=== PATIENT | male | born 1930 | race African-American/Black ===

== ENCOUNTER 2017-04-03 07:06 | Observation (INO) ==
[2017-04-03] MEDS ORDERED: Heparin 1,000 UNITS/500 mL NS 500 ML ONE ×2 (07:19→10:22)
[2017-04-03] MEDS ORDERED: 0.9 % Sodium Chloride 500 ML ONE ×2 (07:20→08:42)
[2017-04-03] MEDS ORDERED: *HR* FentaNYL (PF) 100 MCG/2 ML VIAL IVP ONE (07:47)
[2017-04-03] MEDS ORDERED: *HR* Midazolam HCl 2 MG/2 ML VIAL IVP ONE (07:47)
[2017-04-03] MEDS ORDERED: Ampicillin/Sulbactam 1,500 MG in 0.9 % Sodium Chloride Mini Bag 100 ML IVPB ONE (07:49)
[2017-04-03] MEDS ORDERED: 0.9 % Sodium Chloride 1,000 ML ONE (09:28)
--- NOTE | 2017-04-03 11:32 | Pre-Sedation Evaluation ---
Pre-sedation evaluation - Pre-sedation checklist Date of procedure: 04/03/17 Procedure: liver embolization Recent Vitals: Last Vital Signs Temp 98.5 F 04/03/17 07:43 Pulse 88 04/03/17 11:19 Resp 16 04/03/17 11:19 BP 164/85 04/03/17 11:19 Pulse Ox 100 04/03/17 11:19 H&P (including ROS) documented in medical record: Yes Previous reaction to sedatives/anesthetics: Yes; explain in comment Dietary Status: NPO after Midnight Airway Assessment: Patient can open mouth completely, TMJ function normal, Micrognathia (under-bite, receding chin) absent, Neck with adequate range of motion Dentition: No loose teeth or bridges Possible difficult airway: No ASA Classification *see protocol: CLASS III-Severe systemic disease Plan of Care: Pt appropriate candidate for procedure/moderate/conscious sedation , Risks/benefits of procedure/sedation discussed w/ patient/family, If not NPO; Risk of intake outweiged by necessity to perform procedure
--- NOTE | 2017-04-03 11:33 | History & Physical Report ---
Date of Encounter: 04/03/17 Time of Encounter: 08:00 24 Hour HP Update - Instructions Instructions: If the History and Physical is less than 30 days old and was completed prior to A.M. admission and or procedure and has NOT been updated on calendar day of procedure please complete this update prior to performing procedure. - Update Patient reports changes in Medical Condition: No Changes in examination, assessment, or condition: No Changes in Medication: No Preop tests/diagnostics Reviewed: Yes Surgery Remains Indicated: Yes Consent for Planned Operative Procedure(s) Verified: Yes - Pre-Operative Checklist Preoperative Checklist Indicated: Yes Prophylactic Antibiotic Ordered: Yes Home Medications Include Beta Herminio: No Is VTE Prophylaxis Indicated?: NO
--- NOTE | 2017-04-03 11:35 | IR Procedure Note ---
Date of procedure: 04/03/17 Consent Obtained: Written consent Timeout: Correct patient and procedure verified, Correct site verified, Time out performed, Skin prep completed Local anesthetic: Lidocaine 1% Indications: Lung cancer, hepatocellular carcinoma. Presents for Embolization of liver Procedure Performed: Partial right hepatic lobe embolization. Site/Technique: Segmental areas of liver embolized in areas of current tumor Results/Findings: Persistent flow to left lobe and majority of right lobe Estimated blood loss (cc): 4 Complications: None; Tolerated procedure well Post Procedure Treatment Plan: Monitoring overnight for pain managment/ bleeding. Plan d/c for tomorrow
[2017-04-03] MEDS ORDERED: Ondansetron 4 MG/2 ML VIAL IVP PRN (15:40)
[2017-04-03] MEDS ORDERED: Acetaminophen 325 MG TABLET PO PRN (15:40)
[2017-04-03] MEDS ORDERED: *HR* HYDROcodone/Acet 5/325 mg TABLET PO PRN (15:40)
[2017-04-03] MEDS ORDERED: *HR* Morphine 2 MG/ML SYRINGE IVP PRN (15:40)
[2017-04-03] MEDS ORDERED: Naloxone 0.4 MG/ML INJ IVP PRN (15:40)
[2017-04-03] MEDS ORDERED: *HR* Dextrose 50 % in Water (Syg) 50 ML SYRINGE IVP PRN (15:42)
[2017-04-03] MEDS ORDERED: D5% in Water 1,000 ML IVC PRN (15:42)
[2017-04-03] MEDS ORDERED: Dextrose Gel 15 GM PO PRN ×2 (15:42)
--- NOTE | 2017-04-03 15:44 | Internal Med History&Physical ---
Date of Encounter: 04/03/17 Time of Encounter: 15:44 Assessment and Plan (1) Hepatocellular carcinoma Current visit: No Status: Chronic Patient underwent partial right hepatic lobe embolization-related well we will continue to monitor for any signs and symptoms of bleeding-continue with current pain management morphine as needed Patient is to be discharged home in the a.m. (2) Diabetes mellitus Current visit: Yes Status: Acute We will hold oral medications for now Accu-Cheks before meals at bedtime with sliding scale insulin-resume oral medications upon discharge Diabetic diet Qualifiers: Diabetes mellitus type: type 2 Diabetes mellitus complication status: without complication Diabetes mellitus detention insulin use: without long term care administrator use Qualified Code(s): E11.9 - Type 2 diabetes mellitus without complications (3) Hypertension Current visit: Yes Status: Acute Presently controlled we will continue with home medications Qualifiers: Hypertension type: essential hypertension Qualified Code(s): I10 - Essential (primary) hypertension (4) DVT prophylaxis Current visit: Yes Status: Acute SCD (5) Non-small cell cancer of right lung Current visit: No Status: Chronic Patient is being followed by Dr. Caraballo at [facility]. Continue outpatient follow-up Internal Medicine - H&P: HPI Chief complaint: Partial right hepatic lobe embolization. Admitted From: Intrahospital Transfer Plans for Post Hospital Care: Home History of present illness: Mr. Garcia is a 86 year old male past medical history of diabetes hypertension hyperlipidemia with hepatic carcinoma. Patient is followed by Dr. Caraballo at [facility] CT of chest abdomen and pelvis 07/06/2016 did reveal increase in liver masses. He presented today to undergo hepatic lobe embolization per interventional radiology. He tolerated procedure well and was admitted for monitoring overnight for pain management/bleeding. He is to be discharged tomorrow. Presently the patient denies any pain or discomfort. Presently he is hemodynamically stable there is no active bleeding and denies any pain or discomfort at this time. I did review his case with Dr. Soto who agrees. Past Med Surg Social Fam HX - Past Medical History Medical history: diabetes, hyperlipidemia, hypertension - Social History Smoking Status: Former smoker Smokeless Tobacco Status: No Alcohol use: none Drug use: none - Family History Mother Living Status: Age at : 80 Cause of : diabetes Father Living Status: Internal Medicine - H&P: Meds Donepezil [Aricept] 5 mg PO HS 12/29/14 [History] Magnesium Oxide [Mag-Ox] 400 mg PO DAILY 12/29/14 [History] Memantine [Namenda] 10 mg PO BID 12/29/14 [History] Metformin HCl [Fortamet] 1,000 mg PO BID 12/29/14 [History] Omeprazole [PriLOSEC] 40 mg PO DAILY 12/29/14 [History] Pioglitazone [Actos] 30 mg PO 0800 12/29/14 [History] Naproxen [EC-Naprosyn] 500 mg PO BID PRN #60 tablet. 05/24/15 [Rx] glipiZIDE [Glucotrol] 10 mg PO BIDWM 06/28/15 [History] 3 Allergy/AdvReac Type Severity Reaction Status Date / Time No Known Allergies Allergy Verified 03/20/17 11:49 All Systems PM: A 10-system review of systems was performed and is negative for pertinent findings except as documented above in the HPI. - Constitutional Vitals: Temp Pulse Resp BP Pulse Ox 97.5 F L 82 18 158/76 97 04/03/17 12:00 04/03/17 13:30 04/03/17 13:30 04/03/17 13:30 04/03/17 13:30 General appearance: Present: A&O X 3, answers questions appropriately - Head Head exam: Present: atraumatic, normocephalic - Eye Eye exam: Present: PERRL, conjuntiva pink, sclera anicteric Pupils: Present: PERRL - Neck Neck exam general surgery: Present: supple, trachea midline. Absent: lymphadenopathy - Respiratory Respiratory exam: Present: CTAB. Absent: accessory muscle use, rales, rhonchi, wheezes - Cardiovascular Cardiovascular exam: Present: RRR, +S1, +S2. Absent: diastolic murmur, gallop, rubs, systolic murmur - GI/Abdominal GI/Abdominal exam: Present: normal bowel sounds, soft, no peritoneal signs. Absent: distended, tenderness - Extremities Exam Extremities exam: Present: warm, radial pulses palpable and symmetrical. Absent : calf tenderness, cyanotic, pedal edema - Neurological Exam Neurological exam: Present: CN II-XII intact, oriented X3, no focal deficits. Absent: pronater drift, facial droop, speech deficit - Skin Skin exam: Present: dry, intact
[2017-04-03] MEDS: Insulin LISPRO 300 UNITS/3 ML VIAL SQ SCH (17:13)
[2017-04-03] MEDS ORDERED: Insulin LISPRO 300 UNITS/3 ML VIAL SQ SCH (21:00)
[2017-04-03] MEDS ORDERED: *HR* LORazepam 2 MG/ML VIAL IVP ONE (21:55)
[2017-04-03] MEDS ORDERED: Water for inj. (sterile) 10 ML IV ONE (22:01)
[2017-04-04 05:37] LABS: Basophils % 0.3 %; Eosinophils % 0.3 %; Hematocrit 37.1 % (37.5-50.1); Hemoglobin 11.8 g/dL (12.9-16.9); Immature Granulocytes % 0.4 % (0-4); Lymphocytes % 8.4 %; Mean Corpuscular HGB Conc 31.8 g/dL (31.6-35.5); Mean Corpuscular Volume 87.9 fL (83.0-100.0); Mean Platelet Volume 10.7 fL (9.4-12.4); Monocytes # 1.6 K/mcL (0.0-1.3); Monocytes % 13.1 %; Neutrophils # 9.5 K/mcL (1.6-8.9); Platelet Count 254 K/mcL (140-400); Red Blood Count 4.22 M/mcL (4.19-5.50); Red Cell Distribution Width 13.4 % (11.5-14.5); Segmented Neutrophils % 77.5 %
[2017-04-04 05:51] LABS: BUN/Creatinine Ratio 16 (6-26); Blood Urea Nitrogen 13 mg/dL (8-26); Carbon Dioxide 24 mEq/L (19-29); Chloride 101 mEq/L (98-109); Glucose 238 mg/dL (70-99); Osmolality,Calculated 292 (280-300); Potassium 3.7 mEq/L (3.5-4.5); Sodium 137 mEq/L (136-145); eGFR For African Americans > 60 (> 60); eGFR For Non-African Americans > 60 (> 60)
[2017-04-04] MEDS: Insulin LISPRO 300 UNITS/3 ML VIAL SQ SCH ×2 (07:46→12:05)
--- NOTE | 2017-04-04 07:56 | Event Note ---
Date of Encounter: 04/03/17 Time of Encounter: 19:00 Discussed with TALIA and agree with assessment and plan. Monitoring overnight after hepatic embolization performed by interventional radiology
--- NOTE | 2017-04-04 11:00 | IR Progress Note ---
Patient reports: no new complaints, feels better Date of IR Procedure: 04/03/17 Vital Signs: Vital Signs/O2 Sat, Most Current Temp Pulse Resp BP Pulse Ox 98.6 F 103 16 155/86 96 04/04/17 06:32 04/04/17 06:32 04/04/17 06:32 04/04/17 06:32 04/04/17 06:32 Recent Labs: Lab Results 04/04/17 04/04/17 04:51 04:51 WBC 12.3 H RBC 4.22 Hgb 11.8 L Hct 37.1 L MCV 87.9 MCH 28.0 MCHC 31.8 RDW 13.4 Plt Count 254 MPV 10.7 Neutrophils # 9.5 H Lymphocytes # 1.0 Monocytes # 1.6 H Eosinophils # 0.0 Basophils # 0.0 Sodium 137 Potassium 3.7 Chloride 101 Carbon Dioxide 24 BUN 13 Creatinine 0.79 Est GFR ( Amer) > 60 Est GFR (Non-Af Amer) > 60 BUN/Creatinine Ratio 16 Glucose 238 H Calcium 9.0 Assessment and Plan 86yo s/p partial right hepatic lobe bland embolization for multifocal HCC. Observed overnight, appreciate assistance from Hospitalist Service! Pt feeling well this morning. Denies abdominal pain currently. Right groin exam performed which feels wnl. From a VIR standpoint, would be fine for discharge today. Marky Landry MD
[2017-04-04 11:39] VITALS: BP 139/42
--- NOTE | 2017-04-04 13:39 | Discharge Summary ---
Date of Encounter: 04/04/17 Time of Encounter: 09:05 - Discharge Diagnosis (1) Hepatocellular carcinoma Priority: Primary Status: Chronic Comments: Patient was admitted from surgery after undergoing a partial right hepatic lobe embolization. Patient tolerated the procedure well and had no signs or symptoms of bleeding. Patient will be discharged and will continue following with current providers and current pain management at home. He is alert, oriented, denies any pain or complaints. His vital signs and labs are stable. IR has signed off, report patient is stable for discharge on there and (2) Diabetes mellitus Priority: Secondary Status: Chronic Comments: Continue home medication and Accu-Chek regimen. Qualifiers: Diabetes mellitus type: type 2 Diabetes mellitus complication status: without complication Diabetes mellitus assistant terminal manager insulin use: without assistant terminal manager use Qualified Code(s): E11.9 - Type 2 diabetes mellitus without complications (3) Hypertension Priority: Secondary Status: Chronic Comments: Well controlled. Continue home medication regimen. Qualifiers: Hypertension type: essential hypertension Qualified Code(s): I10 - Essential (primary) hypertension (4) DVT prophylaxis Priority: Secondary Status: Acute Comments: SCDs ordered - Discharge Medications Home Medications: Donepezil [Aricept] 5 mg PO HS 12/29/14 [History] Magnesium Oxide [Mag-Ox] 400 mg PO DAILY 12/29/14 [History] Pioglitazone [Actos] 30 mg PO 0800 12/29/14 [History] Naproxen [EC-Naprosyn] 500 mg PO BID PRN #60 tablet. 05/24/15 [Rx] Memantine HCl 10 mg PO BID 04/03/17 [History] Metformin HCl [Glucophage] 1,000 mg PO BIDWM 04/03/17 [History] Omeprazole [PriLOSEC] 40 mg PO DAILY 04/03/17 [History] glipiZIDE [Glipizide] 10 mg PO BID 04/03/17 [History] Allergies/Adverse Reactions: 3 Allergy/AdvReac Type Severity Reaction Status Date / Time No Known Allergies Allergy Verified 03/20/17 11:49 Procedures/tests Complete & Pending: Procedures Performed prior 72 hours Category Date Time Status IR 2 3 order cath abd pelv ex [IR] Routine IR 04/03/17 Completed IR emboliz treatment S&I [IR] Routine IR 04/03/17 Completed IR embolization any meth [IR] Routine IR 04/03/17 Completed IR us guide needle place [IR] Routine IR 04/03/17 Completed Date of admission: 04/03/17 15:40 Primary care physician: Nadine Rodriguez, Discharging clinician: No Langford Anticipated date of discharge: 04/04/17 - Patient Status Disposition: Home, Self-Care Condition: Good Functional capacity at discharge: independent ambulation Overall status at discharge: patient is back to baseline - Discharge Instructions Follow Up With: Nadine Rodriguez MD [Primary Care Provider] - Braeden Randall MD [Partnered Physician] - 04/13/17 2:00 pm Additional Instructions: Please follow up with your PCP in the next 7-10 days for a recheck Please follow up with your specialists as scheduled. Resume your normal home medications. Return to your normal diet and activities as tolerated. - Diet and Activity Activity: increase activity as tolerated Diet: advance to your usual diet Interval History: Please see assessment and plan per hospital course. Hospital course: Mr. Garcia is a 86 year old male - Time Spent with Patient Total time spent providing and/or coordinating discharge services: Less than 30 minutes - Constitutional Vitals: Temp Pulse Resp BP Pulse Ox 98.5 F 104 16 139/42 96 04/04/17 11:37 04/04/17 11:37 04/04/17 11:37 04/04/17 11:37 04/04/17 11:37 General appearance: Present: cooperative, A&O X 3, pleasant, no acute distress, answers questions appropriately - Head Head exam: Present: atraumatic, normal inspection, normocephalic - Eye Eye exam: Present: normal appearance, conjuntiva pink, sclera anicteric - Neck Neck exam general surgery: Present: supple, trachea midline. Absent: lymphadenopathy - Respiratory Respiratory exam: Present: decreased breath sounds, CTAB. Absent: accessory muscle use, rales, respiratory distress, rhonchi, wheezes - Cardiovascular Cardiovascular exam: Present: RRR, +S1, +S2. Absent: diastolic murmur, gallop, rubs, systolic murmur - GI/Abdominal GI/Abdominal exam: Present: normal bowel sounds, soft, no peritoneal signs. Absent: distended, hepatomegaly, tenderness - Extremities Exam Extremities exam: Present: normal capillary refill, normal inspection, warm, radial pulses palpable and symmetrical. Absent: calf tenderness, cyanotic, pedal edema, tenderness - Neurological Exam Neurological exam: Present: alert, oriented X3, no focal deficits. Absent: facial droop, speech deficit - Skin Skin exam: Present: dry, intact, normal color, warm. Absent: rash - VTE Documentation of Mechanical Device: Intermittent pneumatic compression device
== END 2017-04-04 14:32 | disposition home or self-care (01) ==
LOC: INTRAD 07:06 → 3BNU 12:15 → INTOOBSV 15:40
PROVIDERS: ADMIT Hospitalist; ATTEND Registered Nurse